=== PATIENT | female | born 1990 | race Caucasian/White ===

== ENCOUNTER → 2019-03-12 | Outpatient (CLI) | payer OTHER | END | disposition home or self-care (01) | LOC: PRENATAL 16:00 | DX: O43.91 Unspecified placental disorder, first trimester (principal); O36.80X1 Pregnancy with inconclusive fetal viability, fetus 1; Z36.82 Encounter for antenatal screening for nuchal translucency; O41.1210 Chorioamnionitis, first trimester, not applicable or unspecified ==

== ENCOUNTER → 2019-05-10 | Outpatient (CLI) | payer OTHER | END | disposition home or self-care (01) | LOC: PRENATAL 08:44 | DX: O28.3 Abnormal ultrasonic finding on antenatal screening of mother (principal); O35.3 Maternal care for (suspected) damage to fetus from viral disease in mother; Z3A.19 19 weeks gestation of pregnancy ==

== ENCOUNTER → 2019-07-11 | Outpatient (CLI) | payer OTHER | END | disposition home or self-care (01) | LOC: PRENATAL 07-09 09:00 | PROVIDERS: ATTEND Obstetrics & Gynecology Maternal & Fetal Medicine | DX: O26.843 Uterine size-date discrepancy, third trimester (principal); Z36.89 Encounter for other specified antenatal screening ==

== ENCOUNTER → 2019-09-02 | Outpatient (CLI) | payer OTHER ==
[~2019-09-02] MED LIST: CODE1TAB37 PO; LEVOTHYROXINE88 MCG PO; NAPROXEN SODIU500 M1 PO; PRENATAL TABLE1 EACH PO
== END | disposition home or self-care (01) ==
LOC: PRENATAL 08:00
PROVIDERS: ATTEND Obstetrics & Gynecology Maternal & Fetal Medicine
DX: O26.843 Uterine size-date discrepancy, third trimester (principal); O35.0XX1 Maternal care for (suspected) central nervous system malformation in fetus, fetus 1; O24.410 Gestational diabetes mellitus in pregnancy, diet controlled; Z36.89 Encounter for other specified antenatal screening; Z3A.36 36 weeks gestation of pregnancy

== ENCOUNTER 2019-09-11 16:43 | Inpatient (IN) | payer OTHER ==
[~2019-09-11] VITALS: Ht 165.1 cm; Wt 87.1 kg
[2019-09-11] MEDS ORDERED: PRENATAL TABLE1 EACH PO (18:04)
[2019-09-16] MEDS ORDERED: CODE1TAB37 PO (09:14)
[2019-09-16] MEDS ORDERED: NAPROXEN SODIU500 M1 PO (09:15)
[2019-09-16] MEDS ORDERED: LEVOTHYROXINE88 MCG PO (09:20)
== END 2019-09-16 17:43 | disposition home or self-care (01) | DRG 787 ==
LOC: LDR 16:43 → O/R 09-12 20:17 → OB/GYN 09-12 20:45
PROVIDERS: ADMIT Obstetrics & Gynecology; ATTEND Obstetrics & Gynecology
PROC: 3E0P7VZ Introduction of Hormone into Female Reproductive, Via Natural or Artificial Opening (ICD-10-PCS; 2019-09-11)
PROC: 4A1HXCZ Monitoring of Products of Conception, Cardiac Rate, External Approach (ICD-10-PCS; 2019-09-11)
PROC: 3E033VJ Introduction of Other Hormone into Peripheral Vein, Percutaneous Approach (ICD-10-PCS; 2019-09-12)
PROC: 10D00Z1 Extraction of Products of Conception, Low, Open Approach (ICD-10-PCS; principal; 2019-09-12 18:00)
DX: O64.8XX0 Obstructed labor due to other malposition and malpresentation, not applicable or unspecified (principal); O41.03X0 Oligohydramnios, third trimester, not applicable or unspecified; O99.824 Streptococcus B carrier state complicating childbirth; Z20.828 Contact with and (suspected) exposure to other viral communicable diseases; Z3A.37 37 weeks gestation of pregnancy; Z37.0 Single live birth

== ENCOUNTER 2021-05-13 14:18 | Outpatient (CLI) | payer OTHER | END 2021-05-13 14:49 | disposition home or self-care (01) | LOC: PRENATAL 14:18 | PROVIDERS: ATTEND Obstetrics & Gynecology Maternal & Fetal Medicine | DX: Z36.0 Encounter for antenatal screening for chromosomal anomalies (principal) ==

== ENCOUNTER 2021-06-10 12:46 | Outpatient (CLI) | payer OTHER | END 2021-06-10 14:00 | disposition home or self-care (01) | LOC: PRENATAL 12:46 | PROVIDERS: ATTEND Obstetrics & Gynecology Maternal & Fetal Medicine | DX: O35.0XX0 Maternal care for (suspected) central nervous system malformation in fetus, not applicable or unspecified (principal); O35.3XX0 Maternal care for (suspected) damage to fetus from viral disease in mother, not applicable or unspecified; Z3A.20 20 weeks gestation of pregnancy ==

== ENCOUNTER 2021-09-15 09:08 | Outpatient (CLI) | payer OTHER | END 2021-09-15 10:25 | disposition home or self-care (01) | LOC: PRENATAL 09:08 | PROVIDERS: ATTEND Obstetrics & Gynecology Maternal & Fetal Medicine | DX: O26.849 Uterine size-date discrepancy, unspecified trimester (principal); Z3A.33 33 weeks gestation of pregnancy ==

== ENCOUNTER 2021-10-16 02:11 | Inpatient (IN) | payer OTHER ==
[~2021-10-16] VITALS: Ht 167.6 cm; Wt 3.2 kg
[2021-10-16] MEDS ORDERED: SYNTHROID150 MCG PO (04:20)
[2021-10-19] MEDS ORDERED: NAPR500T14 PO (13:20)
[2021-10-19] MEDS ORDERED: Tylenol #3 PO (13:20)
== END 2021-10-19 13:36 | disposition home or self-care (01) | DRG 788 ==
LOC: OB/GYN 02:11 → LDR 02:11 → OB/GYN 05:10
PROVIDERS: ADMIT Student in an Organized Health Care Education/Training Program; ATTEND Student in an Organized Health Care Education/Training Program
PROC: 4A1HXCZ Monitoring of Products of Conception, Cardiac Rate, External Approach (ICD-10-PCS; 2021-10-16)
PROC: 10D00Z1 Extraction of Products of Conception, Low, Open Approach (ICD-10-PCS; principal; 2021-10-16 07:00)
DX: O34.211 Maternal care for low transverse scar from previous cesarean delivery (principal); Z3A.38 38 weeks gestation of pregnancy; Z37.0 Single live birth; Z20.822 Contact with and (suspected) exposure to COVID-19

== ENCOUNTER 2022-08-04 14:12 | Outpatient (CLI) | payer OTHER ==
[~2022-08-04 14:12] MED LIST changes: +NAPR500T14 PO; +SYNTHROID150 MCG PO; +Tylenol #3 PO
== END 2022-08-04 16:14 | disposition home or self-care (01) ==
LOC: PRENATAL 14:12
PROVIDERS: ATTEND Obstetrics & Gynecology Maternal & Fetal Medicine
DX: O36.80X0 Pregnancy with inconclusive fetal viability, not applicable or unspecified (principal); O26.899 Other specified pregnancy related conditions, unspecified trimester; Z3A.01 Less than 8 weeks gestation of pregnancy

== ENCOUNTER 2022-09-13 09:57 | Outpatient (CLI) | payer OTHER | END 2022-09-13 12:02 | disposition home or self-care (01) | LOC: PRENATAL 09:57 | PROVIDERS: ATTEND Obstetrics & Gynecology Maternal & Fetal Medicine | DX: O36.80X0 Pregnancy with inconclusive fetal viability, not applicable or unspecified (principal); Z36.9 Encounter for antenatal screening, unspecified; O34.219 Maternal care for unspecified type scar from previous cesarean delivery; Z3A.13 13 weeks gestation of pregnancy ==

== ENCOUNTER 2022-11-16 18:52 | Inpatient (IN) | payer OTHER ==
[~2022-11-16] VITALS: Ht 162.6 cm; Wt 79.8 kg
[2022-11-16 19:29] LABS: URINE APPEARANCE Clear; URINE BILIRRUBIN Negative (NEGATIVE); URINE BLOOD Negative; URINE COLOR Yellow; URINE GLUCOSE Negative (NEGATIVE); URINE LEUKOCYTE Negative; URINE NITRATE Negative; URINE PROTEIN Negative (NEGATIVE); URINE UROBILINOGEN 0.2 E.U./dl
[2022-11-16 19:32] LABS: URINE BACTERIA 809.8 uL (0.0-1933); URINE RBC 2.7 uL (0.0-20.8); URINE WBC 10.3 uL (0.0-23.2)
[2022-11-16 19:47] LABS: HEMATOCRIT 34.2 % (36.0-45.00); HEMOGLOBIN 11.6 g/dL (12.0-15.00); MEAN CELL VOLUME 86.9 fL (80.00-100.00); MEAN CORPUSCULAR HEMOGLOBIN 29.4 pg (27.00-32.0); MEAN CORPUSCULAR HGB CONC 33.8 g/dl (32.0-36.0); PLATELET COUNT 245 K/uL (150-450); RED BLOOD COUNT 3.94 M/uL (4.00-6.00); RED CELL DISTRIBUTION WIDTH 12.9 % (11.5-14.5)
[2022-11-16 19:53] LABS: BILIRUBIN TOTAL 0.5 mg/dL (0.3-1.2); CALCIUM 8.4 mg/dL (8.5-10.1); CREATININE SERUM 0.53 mg/dL (0.55-1.02); GFR 133.68; GLOBULINA 3.3 G/DL (2.4-3.5); POTASSIUM 3.52 mEq/L (3.5-5.1); TOTAL PROTEIN 6.3 gm/dL (6.4-8.2)
[2022-11-17 08:01] LABS: HEMATOCRIT 31.8 % (36.0-45.00); MEAN CELL VOLUME 86.4 fL (80.00-100.00); MEAN CORPUSCULAR HEMOGLOBIN 29.9 pg (27.00-32.0); MEAN CORPUSCULAR HGB CONC 34.7 g/dl (32.0-36.0); PLATELET COUNT 231 K/uL (150-450); RED BLOOD COUNT 3.68 M/uL (4.00-6.00)
== END 2022-11-20 13:43 | disposition home or self-care (01) | DRG 833 ==
LOC: OBS/DEL 18:52 → LDR 11-17 19:28 → OB/GYN 11-18 11:52
PROVIDERS: ADMIT Obstetrics & Gynecology; ATTEND Obstetrics & Gynecology
PROC: 4A1HXCZ Monitoring of Products of Conception, Cardiac Rate, External Approach (ICD-10-PCS; principal; 2022-11-17)
PROC: BY4CZZZ Ultrasonography of Second Trimester, Single Fetus (ICD-10-PCS; 2022-11-17)
PROC: BU4CZZZ Ultrasonography of Uterus and Ovaries (ICD-10-PCS; 2022-11-17)
DX: O26.892 Other specified pregnancy related conditions, second trimester (principal); O60.02 Preterm labor without delivery, second trimester; R10.9 Unspecified abdominal pain; Z3A.22 22 weeks gestation of pregnancy; Z20.822 Contact with and (suspected) exposure to COVID-19
CPT/HCPCS: 72195; 74181

== ENCOUNTER 2023-01-24 09:06 | Outpatient (CLI) | payer OTHER | END 2023-01-24 09:09 | disposition home or self-care (01) | LOC: PRENATAL 09:06 | PROVIDERS: ATTEND Obstetrics & Gynecology Maternal & Fetal Medicine | DX: O26.849 Uterine size-date discrepancy, unspecified trimester (principal); O36.8199 Decreased fetal movements, unspecified trimester, other fetus; O34.219 Maternal care for unspecified type scar from previous cesarean delivery; O99.280 Endocrine, nutritional and metabolic diseases complicating pregnancy, unspecified trimester; Z3A.32 32 weeks gestation of pregnancy ==

== ENCOUNTER 2023-03-09 08:18 | Inpatient (IN) | payer OTHER ==
[~2023-03-09] VITALS: Ht 167.6 cm; Wt 3.6 kg
[2023-03-09] MEDS ORDERED: PEPCID AC20 MG PO (09:10)
[2023-03-09 09:17] LABS: PH,URINE 6.5 (5.0-8.0); URINE APPEARANCE Clear; URINE BILIRRUBIN Negative (NEGATIVE); URINE BLOOD Negative; URINE COLOR Dark Yellow; URINE GLUCOSE Negative (NEGATIVE); URINE LEUKOCYTE Small; URINE NITRATE Negative; URINE PROTEIN Trace (NEGATIVE)
[2023-03-09 09:19] LABS: HEMATOCRIT 35.2 % (36.0-45.00); HEMOGLOBIN 12.1 g/dL (12.0-15.00); MEAN CELL VOLUME 81.9 fL (80.00-100.00); MEAN CORPUSCULAR HEMOGLOBIN 28.1 pg (27.00-32.0); MEAN CORPUSCULAR HGB CONC 34.4 g/dl (32.0-36.0); PLATELET COUNT 283 K/uL (150-450); RED CELL DISTRIBUTION WIDTH 15.2 % (11.5-14.5); URINE BACTERIA 5692.6 uL (0.0-1933); URINE EPITHELIAL CELLS 51.4 uL (0.0-38.8); URINE RBC 8.6 uL (0.0-20.8)
[2023-03-09 09:47] LABS: INR < 0.93; PARTIAL THROMBOPLASTIN TIME 25.9 SECONDS (22.0-34.0); PROTHROMBIN TIME 9.8 SECONDS (9.0-11.5)
[2023-03-09 09:49] LABS: ALBUMIN 2.9 gm/dL (3.4-5.0); BILIRUBIN TOTAL 0.34 mg/dL (0.3-1.2); CALCIUM 9.4 mg/dL (8.5-10.1); CREATININE SERUM 0.65 mg/dL (0.55-1.02); GFR 105.63; GLOBULINA 3.7 G/DL (2.4-3.5); POTASSIUM 4.3 mEq/L (3.5-5.1); TOTAL PROTEIN 6.6 gm/dL (6.4-8.2)
[2023-03-09 21:56] LABS: HEMATOCRIT 33.6 % (36.0-45.00); HEMOGLOBIN 11.4 g/dL (12.0-15.00); MEAN CELL VOLUME 82.8 fL (80.00-100.00); MEAN CORPUSCULAR HEMOGLOBIN 28.2 pg (27.00-32.0); MEAN CORPUSCULAR HGB CONC 34.1 g/dl (32.0-36.0); PLATELET COUNT 256 K/uL (150-450); RED BLOOD COUNT 4.06 M/uL (4.00-6.00); RED CELL DISTRIBUTION WIDTH 15.1 % (11.5-14.5)
[2023-03-12] MEDS ORDERED: NAPR500T14 PO (07:49)
[2023-03-12] MEDS ORDERED: Tylenol #3 PO (07:49)
== END 2023-03-12 11:28 | disposition home or self-care (01) | DRG 788 ==
LOC: LDR 08:18 → OB/GYN 08:18 → O/R 08:18 → OB/GYN 16:27
PROVIDERS: ADMIT Obstetrics & Gynecology; ATTEND Obstetrics & Gynecology
PROC: 4A1HXCZ Monitoring of Products of Conception, Cardiac Rate, External Approach (ICD-10-PCS; 2023-03-09)
PROC: 10D00Z1 Extraction of Products of Conception, Low, Open Approach (ICD-10-PCS; principal; 2023-03-09 17:15)
DX: O34.211 Maternal care for low transverse scar from previous cesarean delivery (principal); Z3A.38 38 weeks gestation of pregnancy; Z37.0 Single live birth; Z20.822 Contact with and (suspected) exposure to COVID-19